=== PATIENT | male | born 1990 | race Caucasian/White ===

== ENCOUNTER 2016-03-27 00:58 | Emergency (ER) | payer OTHER ==
[~2016-03-27] VITALS: Ht 177.8 cm; Wt 75.0 kg
[2016-03-27 01:03] VITALS: BP 147/65; PULSE 92; RESP 16; TEMP 98.3; O2SAT 98
[2016-03-27 01:06] VITALS: BP 171/94; PULSE 95; RESP 16; TEMP 98.4; O2SAT 96
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
[2016-03-27] MEDS ORDERED: LIDOCAINE 1%/EPINEPHrine 1:100,000 SOLN 20 ML VIAL INFIL ONE (01:45)
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
[2016-03-27] MEDS ORDERED: IBUP800T23 PO (03:16)
== END 2016-03-27 03:24 | disposition home or self-care (01) ==
LOC: NEPB 00:58
DX: S01.412A Laceration without foreign body of left cheek and temporomandibular area, initial encounter (principal); V49.50XA Passenger injured in collision with unspecified motor vehicles in traffic accident, initial encounter
CPT/HCPCS: 12011; 70450; 70486